=== PATIENT | female | born 1975 | race Caucasian/White ===

== ENCOUNTER 2019-10-01 15:30 | Outpatient (CLI) | payer OTHER ==
[2019-10-01] MEDS ORDERED: SPIR100T4 PO (15:47)
[2019-10-01] MEDS ORDERED: LEVO125T63 PO (15:47)
[2019-10-01] MEDS ORDERED: OMEP40CA42 PO (15:47)
[2019-10-01] MEDS ORDERED: FERR-46 PO (15:59)
[2019-10-01] MEDS ORDERED: OMEG1CAP23 PO (15:59)
[2019-10-01] MEDS ORDERED: MULT-658 PO (15:59)
[2019-10-01] MEDS ORDERED: CHOL100015 PO (15:59)
[2019-10-01 16:17] LABS: BASOPHILS # (AUTO) 0.08 x10^3/uL (0-0.1); BASOPHILS % (AUTO) 1 % (0-1); EOSINOPHILS # (AUTO) 0.07 x10^3/uL (0-0.4); EOSINOPHILS % (AUTO) 1 % (1-7); LYMPHOCYTES # (AUTO) 3.19 x10^3/uL (1-3.4); LYMPHOCYTES % (AUTO) 33 % (22-44); MD NO; MEAN CORPUSCULAR HEMOGLOBIN 30.4 pg (27.0-34.8); MEAN CORPUSCULAR VOLUME 92.1 fL (80-100); MEAN PLATELET VOLUME 8.9 fL (7.4-10.4); MONOCYTES # (AUTO) 0.68 x10^3/uL (0.2-0.8); MONOCYTES % (AUTO) 7 % (2-9); NEUTROPHILS # (AUTO) 5.58 x10^3/uL (1.8-6.8); NEUTROPHILS % (AUTO) 58 % (42-75); PLATELET COUNT 383 x10^3/uL (130-400); RED BLOOD COUNT 4.76 x10^6/uL (3.82-5.3)
[2019-10-01 16:58] LABS: ALANINE AMINOTRANSFERASE 23 U/L (12-78); ALBUMIN 3.9 g/dL (3.4-5.0); ANION GAP 7 mmol/L (5-15); CALCIUM 9.2 mg/dL (8.5-10.1); CHLORIDE 104 mmol/L (98-107); CREATININE 0.88 mg/dL (0.55-1.02)
[2019-10-01 17:00] LABS: ALKALINE PHOSPHATASE 44 U/L (45-117); BILIRUBIN,TOTAL 0.6 mg/dL (0.2-1.0); TOTAL PROTEIN 7.6 g/dL (6.4-8.2)
== END 2019-10-01 23:59 | disposition home or self-care (01) ==
LOC: STAR 15:30
PROVIDERS: ATTEND Specialist
DX: N92.0 Excessive and frequent menstruation with regular cycle (principal); N94.5 Secondary dysmenorrhea
CPT/HCPCS: 36415; 80053; 85025

== ENCOUNTER 2019-10-07 05:49 | Observation (INO) | payer OTHER ==
[~2019-10-07] VITALS: Ht 152.4 cm; Wt 94.0 kg
[~2019-10-07 05:49] MED LIST: CHOL100015 PO; FERR-46 PO; LEVO125T63 PO; MULT-658 PO; OMEG1CAP23 PO; OMEP40CA42 PO; SPIR100T4 PO
[2019-10-07] MEDS ORDERED: LACTATED RINGERS 1,000 ML IV SCH (06:33)
[2019-10-07 06:49] LABS: HCG UR SG 1.023 (1.003-1.030)
[2019-10-07] MEDS ORDERED: BUPIVACAINE/PF 0.25% ONE (06:59)
[2019-10-07] MEDS ORDERED: INDIGO CARMINE 0.8%, 5ML ONE (07:13)
[2019-10-07] MEDS ORDERED: FLUORESCEIN SODIUM 500 MG/5 ML ONE (07:13)
[2019-10-07] MEDS ORDERED: MIDAZOLAM 1 MG/ML, 2ML ONE (07:25)
[2019-10-07] MEDS ORDERED: FENTANYL PF 250 MCG/5ML ONE (07:25)
[2019-10-07] MEDS ORDERED: HALOPERIDOL 5 MG/ML IV PRN (07:30)
[2019-10-07] MEDS ORDERED: hydrALAzine 20 MG/ML, 1ML IV PRN (07:30)
[2019-10-07] MEDS ORDERED: GABAPENTIN 300 MG CAPSULE PO ONE (07:30)
[2019-10-07] MEDS ORDERED: MEPERIDINE/PF 25MG/ML,1ML IVPush PRN (07:30)
[2019-10-07] MEDS ORDERED: SCOPOLAMINE PATCH, 1.5MG PATCH.TD72 TD ONE (07:30)
[2019-10-07] MEDS ORDERED: LABETALOL 5MG/ML, 20ML IV PRN (07:30)
[2019-10-07] MEDS ORDERED: ACETAMINOPHEN 500 MG TABLET PO ONE (07:30)
[2019-10-07] MEDS ORDERED: PROMETHAZINE 25 MG/ML, 1ML IV PRN (07:30)
[2019-10-07] MEDS ORDERED: NEOSTIGMINE 1 MG/ML, 10ML ONE (09:09)
[2019-10-07] MEDS ORDERED: CEFAZOLIN 1,000 MG ONE (09:09)
[2019-10-07] MEDS ORDERED: ONDANSETRON 2MG/ML, 2ML ONE (09:09)
[2019-10-07] MEDS ORDERED: GLYCOPYRROLATE 0.2MG/1ML, 5ML ONE (09:09)
[2019-10-07] MEDS ORDERED: PROPOFOL 10 MG/ML, 20ML ONE (09:09)
[2019-10-07] MEDS ORDERED: ROCURONIUM 10MG/ML,5ML ONE (09:09)
[2019-10-07] MEDS ORDERED: SUCCINYLCHOLINE 20 MG/ML, 10ML ONE (09:09)
[2019-10-07] MEDS ORDERED: DEXAMETHASONE 4 MG/ML, 1ML ONE (09:09)
[2019-10-07] MEDS ORDERED: FENTANYL PF 100 MCG/2ML ONE (09:44)
[2019-10-07] MEDS ORDERED: OXYcodone 5 MG/5 ML ORAL.SOL UDC ONE ×2 (09:44→10:46)
[2019-10-07] MEDS ORDERED: HYDROmorphone 1 MG/ML, 1ML INJ ONE (09:44)
[2019-10-07] MEDS: OXYcodone 5 MG/5 ML ORAL.SOL UDC PO PRN ×2 (09:45→10:47)
[2019-10-07] MEDS: FENTANYL PF 100 MCG/2ML IV PRN ×2 (09:47→10:16)
[2019-10-07] MEDS: HYDROmorphone 2 MG/ML, 1ML IVPush PRN ×2 (10:00→10:30)
[2019-10-07] MEDS ORDERED: KETOROLAC 30 MG/1 ML ONE (10:25)
[2019-10-07] MEDS ORDERED: KETOROLAC 30 MG/1 ML IVPush ONE (11:00)
[2019-10-07] MEDS: KETOROLAC 30 MG/1 ML IVPush PRN (16:16)
[2019-10-07] MEDS ORDERED: OXYcodone/APAP 5/325MG TABLET PO PRN (17:00)
[2019-10-07] MEDS ORDERED: ONDANSETRON 2MG/ML, 2ML IVPush PRN (17:00)
[2019-10-08 00:07] VITALS: BP 111/63
[2019-10-08 03:57] VITALS: BP 104/62
[2019-10-08] MEDS: KETOROLAC 30 MG/1 ML IVPush PRN (04:34)
[2019-10-08 07:00] VITALS: BP 104/59
[2019-10-08 07:27] VITALS: BP 120/70
== END 2019-10-08 09:53 | disposition home or self-care (01) ==
LOC: OUT 05:49 → ORIP 16:51 → 4NE 19:00 → DCLOUNGE 10-08 09:40
PROVIDERS: ADMIT Specialist; ATTEND Specialist
DX: N94.6 Dysmenorrhea, unspecified (principal); N92.0 Excessive and frequent menstruation with regular cycle; D64.9 Anemia, unspecified; K21.9 Gastro-esophageal reflux disease without esophagitis; E03.9 Hypothyroidism, unspecified
CPT/HCPCS: 57268; 58552; 81025; 88307; 96374; G0378; J0330; J0690; J1100; J1170; J1885; J2250; J2405; J2704; J2710; J3010; J3490; J7120; S2900